=== PATIENT | female | born 1995 | race Caucasian/White ===

== ENCOUNTER 2019-02-16 04:59 | Inpatient (IN) | payer OTHER, MEDICAID ==
--- NOTE | 2019-02-16 07:17 | US ---
INDICATION: with possible rupture of membranes. TECHNIQUE: Ultrasound OB pelvis transabdominal. Real-time zaidi-scale imaging of the fetus was performed as well as color Doppler and spectral Doppler analysis of the umbilical artery. COMPARISON: 06/28/2018. FINDINGS: Sonographic imaging demonstrates a single living intrauterine gestation. Fetus demonstrates a regular cardiac rate of 163 beats per minute. Fetus has a cephalic orientation. The placenta lies posterior without evidence of placenta previa. Amniotic fluid volume appears normal with an EUGENE of 14.1 cm. breathing and movement were observed. IMPRESSION.: Viable intrauterine . Amniotic fluid volume is normal with an EUGENE of 14.1 cm. No abnormality visualized. Dictated by Cain Stover MD @ Feb 16 2019 7:12AM Signed by Dr. Cain Stover @ Feb 16 2019 7:16AM
[2019-02-16] MEDS ORDERED: Nalbuphine 10 MG/1 ML Vial IVPUSH PRN (07:50)
[2019-02-16] MEDS ORDERED: Water For Irrigation,Sterile 1,000 ML Container IRR PRN (07:50)
[2019-02-16] MEDS ORDERED: Sodium Chloride 0.9% 10 ML Syringe FLUSH PRN (07:50)
[2019-02-16] MEDS ORDERED: Methylergonovine 0.2 MG/1 ML Amp IM PRN (07:50)
[2019-02-16] MEDS ORDERED: Sodium Chloride 0.9% 10 ML SDV IV PRN (07:50)
[2019-02-16] MEDS ORDERED: Misoprostol 200 MCG Tab PO PRN (07:50)
[2019-02-16] MEDS ORDERED: Sodium Chloride 0.9% 2.5 ML Syringe FLUSH PRN (07:50)
[2019-02-16] MEDS ORDERED: Carboprost Tromethamine 250 MCG/1 ML Amp IM PRN (07:50)
[2019-02-16] MEDS ORDERED: Lidocaine 1% 50 ML MDV INJECT PRN (07:50)
[2019-02-16] MEDS ORDERED: Tranexamic Acid 1,000 MG in Sodium Chloride 0.9% 100 ML IV PRN (07:50)
[2019-02-16] MEDS ORDERED: Oxytocin/0.9 % Sodium Chloride 30 UNIT/500 ML BAG IV SCH ×2 (08:00→10:45)
[2019-02-16] MEDS: Lactated Ringers 1,000 ML IV SCH ×2 (10:00→16:22)
[2019-02-16] MEDS: Butorphanol 1 MG/ML SDV IVPUSH PRN ×2 (14:15→15:22)
[2019-02-16] MEDS ORDERED: fentaNYL 100 MCG/2 ML SDV ONE (17:04)
[2019-02-16] MEDS ORDERED: Ropivacaine HCl/PF 100 ML ONE (17:05)
[2019-02-16] MEDS ORDERED: Ropivacaine 0.2% 2 MG/ML 20 ML SDV ONE (17:05)
--- NOTE | 2019-02-16 19:22 | PCM.PREANE ---
Preanesthetic Assessment - Procedure Proposed Procedure: Labor Epidural - Anesthesia/Transfusion/Family Hx Anesthesia History: No Prior Anesthesia Family History of Anesthesia Reaction: Yes Family History of Anesthesia Reaction, Other: History of pseudocholinesterase defiecency. States tested and NEGATIVE. Transfusion History: No Prior Transfusion(s) Intubation History: Unknown - Review of Systems General: No Symptoms Pulmonary: No Symptoms Cardiovascular: No Symptoms Gastrointestinal: No Symptoms Neurological: No Symptoms Other: Reports: None - Physical Assessment NPO Status Date: 02/16/19 NPO Status Time: 16:00 (Clear liquids) Pulse: 80 O2 Sat by Pulse Oximetry: 99 Respiratory Rate: 24 Blood Pressure: 141/78 Temperature: 36.8 C Height: 1.63 m Weight: 78.471 kg ASA Class: 2 Mental Status: Alert & Oriented x3 Airway Class: Mallampati = 1 Dentition: Reports: Normal Dentition ROM/Head Extension: Full Cardiovascular: Regular Rate - Lab Values: Laboratory Last Values WBC 13.57 K/uL (4.0-11.0) H 02/16/19 08:30 RBC 3.83 M/uL (4.30-5.90) L 02/16/19 08:30 Hgb 12.0 g/dL (12.0-16.0) 02/16/19 08:30 Hct 35.9 % (36.0-46.0) L 02/16/19 08:30 MCV 93.7 fL (80.0-98.0) 02/16/19 08:30 MCH 31.3 pg (27.0-32.0) 02/16/19 08:30 MCHC 33.4 g/dL (31.0-37.0) 02/16/19 08:30 RDW Std Deviation 47.7 fl (28.0-62.0) 02/16/19 08:30 RDW Coeff of Alyce 14 % (11.0-15.0) 02/16/19 08:30 Plt Count 160 K/uL (150-400) 02/16/19 08:30 MPV 9.10 fL (7.40-12.00) 02/16/19 08:30 Nucleated RBC % 0.0 /100WBC 02/16/19 08:30 Nucleated RBCs # 0 K/uL 02/16/19 08:30 Membrane Rupture POSITIVE 02/16/19 05:35 Blood Type A POSITIVE 02/16/19 08:30 Antibody Screen NEGATIVE 02/16/19 08:30 - Allergies Allergies/Adverse Reactions: Allergies Allergy/AdvReac Type Severity Reaction Status Date / Time No Known Allergies Allergy Verified 02/16/19 05:12 - Blood Blood Available: No - Anesthesia Plan Free Text/Narrative:: Labor Epidural. Discussed, ? answered, permit signed, expectations understood. Pre-Op Medication Ordered: None - Acknowledgements Anesthesia Type Planned: Epidural Pt an Appropriate Candidate for the Planned Anesthesia: Yes Alternatives and Risks of Anesthesia Discussed w Pt/Guardian: Yes Pt/Guardian Understands and Agrees with Anesthesia Plan: Yes Additional Comments: Will proceed. PreAnesthesia Questionnaire - Past Health History Medical/Surgical History: Denies Medical/Surgical History - SUBSTANCE USE Smoking Status *Q: Never Smoker Tobacco Use Within Last Twelve Months: No Second Hand Smoke Exposure: No Days Per Week of Alcohol Use: 3 Number of Drinks Per Day: 3 Total Drinks Per Week: 9 Date of Last Drink: 06/17/18 Recreational Drug Use History: No - HOME MEDS Home Medications: Home Meds Vit #76/Iron,Carb/Fa [Pnv 29-1 Tablet] 1 each PO DAILY 02/14/19 [ History] - CURRENT (IN HOUSE) MEDS Current Meds: Current Medications Butorphanol Tartrate (Stadol) 1 mg IVPUSH Q1H PRN PRN Reason: Pain Last Admin: 02/16/19 15:22 Dose: 1 mg Carboprost Tromethamine (Hemabate Ds) 250 mcg IM ASDIRECTED PRN PRN Reason: Post Hemorrhage Tranexamic Acid 1,000 mg/ (Sodium Chloride) 110 mls @ 660 mls/hr IV ONETIME PRN PRN Reason: Bleeding Lactated Ringer's (Ringers, Lactated) 1,000 mls @ 150 mls/hr IV Q7H SARAH Last Admin: 02/16/19 16:22 Dose: 150 mls/hr Oxytocin/Sodium Chloride (Oxytocin 30 Unit/500 Ml-Ns) 30 unit in 500 mls @ 500 mls/hr IV TITRATE SARAH Oxytocin/Sodium Chloride (Oxytocin 30 Unit/500 Ml-Ns) 30 unit in 500 mls @ 2 mls/hr IV TITRATE SARAH; Protocol Last Infusion: 02/16/19 13:15 Dose: 6 munits/min, 6 mls/hr Lidocaine HCl (Xylocaine 1%) 50 ml INJECT ONETIME PRN PRN Reason: Laceration repair Methylergonovine Maleate (Methergine) 0.2 mg IM ASDIRECTED PRN PRN Reason: Post Hemorrhage Misoprostol (Cytotec) 200 mcg PO ONETIME PRN PRN Reason: Post Hemorrhage Nalbuphine HCl (Nubain) 10 mg IVPUSH Q1H PRN PRN Reason: Pain (severe 7-10) Sodium Chloride (Saline Flush) 10 ml FLUSH ASDIRECTED PRN PRN Reason: Keep Vein Open Sodium Chloride (Saline Flush) 2.5 ml FLUSH ASDIRECTED PRN PRN Reason: Keep Vein Open Sodium Chloride (Normal Saline) 10 ml IV ASDIRECTED PRN PRN Reason: IV Use Sterile Water (Sterile Water For Irrigation) 1,000 ml IRR ASDIRECTED PRN PRN Reason: delivery Discontinued Medications Fentanyl (Sublimaze) Confirm Administered Dose 100 mcg .ROUTE .STK-MED ONE Stop: 02/16/19 17:05 Ropivacaine (Naropin 0.2%) Confirm Administered Dose 100 mls @ as directed .ROUTE .STK-MED ONE Stop: 02/16/19 17:06 Ropivacaine (Naropin 0.2%) Confirm Administered Dose 20 ml .ROUTE .STK-MED ONE Stop: 02/16/19 17:06
--- NOTE | 2019-02-16 19:42 | PCM.PRNOTE ---
- Free Text/Narrative Note: Called to [facility] 1 for epidural. 1 cm in active labor on Pitocin. Dilated ~3cm. Pain with contractions 8-10. Discussed, ? answered, risks, benefits, expectations understood. Wishes to proceed. Permit signed. 17:16 Prep 17:20 Skin localized with 4ml 1% Lido @ L3-L4. 17:21 Needle inserted. 17:22 Epidural space ID'd via MARYJANE with0.9 NaCl/air mixture. Confirmed with4 ml 0.9 NaCl. 17:23 Catheter to 9 cm without issues. 17:24-26 Test with 5ml 1.5% lido with 1:200K epi added. TEST NEGATIVE. Occlusive Drsg Applied. 17:34-44 Bolus given, Naropin 0.2% 7ml + 100mcg Fentanyl. 17:48 pain to <2. VSS. 17:51 Gtt started at 8ml/hr with 4ml/q15 bolus of Naropin 0.2%. Tolerated well. Pain minimal. VSS. No problems noted post at present.
--- NOTE | 2019-02-16 21:46 | PCM.OPNOTE ---
<Corrie Candelario - Last Filed: 02/16/19 21:57> - General Post-Op/Procedure Note Condition: Good Free Text/Narrative:: [id number] <Ashia Flaherty - Last Filed: 02/16/19 22:00> - General Post-Op/Procedure Note Date of Surgery/Procedure: 02/16/19 Operative Procedure(s): Spontaneous vaginal delivery Findings: Spontaneous vaginal delivery of a live female . Apgars 8/9. Weight pending. 3vc. Placenta intact Pre Op Diagnosis: 39/0 IUP. 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
[2019-02-16] MEDS ORDERED: Lanolin 100% Cream 7 GM Tube TOP PRN (21:49)
[2019-02-16] MEDS ORDERED: Bisacodyl 10 MG Supp RECTAL PRN (21:49)
[2019-02-16] MEDS ORDERED: Ondansetron 4 MG/2 ML SDV IVPUSH PRN (21:49)
[2019-02-16] MEDS ORDERED: Docusate Sodium 100 MG Cap PO PRN (21:49)
[2019-02-16] MEDS ORDERED: Benzocaine/Menthol 20%-0.5% Spray 78 GM Cannister TOP PRN (21:49)
[2019-02-16] MEDS ORDERED: Aluminum Hydroxide/Magnesium Hydroxide/Simethicone Susp 30 ML Cup PO PRN (21:49)
[2019-02-16] MEDS ORDERED: oxyCODONE 5 MG Tab PO PRN (21:49)
[2019-02-16] MEDS ORDERED: Ibuprofen 400 MG Tab PO PRN (21:49)
[2019-02-16] MEDS ORDERED: Acetaminophen 500 MG Tab PO PRN ×2 (21:49)
[2019-02-16] MEDS ORDERED: Witch Hazel Medicated Pads 40/Jar TOP PRN (21:49)
--- NOTE | 2019-02-17 03:16 | OR ---
SURGEON: Corrie Candelario M.D. DATE OF PROCEDURE: 02/16/2019 PREOPERATIVE DIAGNOSES: 1. A 39 weeks' intrauterine . 2. Spontaneous rupture of membranes. POSTOPERATIVE DIAGNOSES: 1. A 39 weeks' intrauterine . 2. Spontaneous rupture of membranes. PROCEDURE: Spontaneous vaginal delivery, first-degree midline laceration repair. PRIMARY SURGEON: Corrie Candelario M.D. [employer] CHANGER [employer]: Eze Flaherty, MS4 ANESTHESIA: Epidural. ESTIMATED BLOOD LOSS: 250 mL. COMPLICATIONS: None. FINDINGS: Viable female. score 8 at one minute and 9 at five minutes. Weight is pending. Spontaneous delivery, intact placenta, 3-vessel cord. DISPOSITION: to [facility], mom in LDRP, stable. 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 With observation, she did not show evidence of active labor, and she was 2 to 3 cm dilated. Therefore, initiated Pitocin augmentation shortly after 9 a.m. She responded nicely to this, became increasingly uncomfortable, and underwent regional anesthesia from epidural, became more comfortable with the epidural and progressed to 4 cm, 90% effaced, 0 station. There was a forebag present. Therefore, amniotomy was performed with this. Clear fluid was returned, an IUPC was placed, and continued with Pitocin augmentation. The patient responded nicely to this and progressed to complete shortly before 9 p.m. She began pushing efforts, pushed for just over 20 minutes to a +3 station. I was called for delivery. Upon my arrival, the patient was placed in modified dorsal lithotomy position and was prepped and draped in the usual aseptic manner. With these pushing efforts, head was delivered atraumatically spontaneously, followed by anterior shoulder and posterior shoulder, and remainder of the body without difficulty. The 's oropharynx and nares bulb suctioned. Cord was clamped x2 and cut. Infant was handed off to her mother with attending nursing staff at side. Cord arterial, cord venous, cord blood sampling obtained. Light pressure was applied while the placenta was delivered spontaneously intact. Vigorous fundal and uterine massage was then applied while 30 units of Pitocin was delivered in 500 mL of IV fluid. Upon inspection of cervix, vaginal sidewalls, and perineum, there was found to be a first-degree midline laceration which I repaired using 3-0 Vicryl in a [id number] suture. Upon inspection of cervix, vaginal sidewalls, and perineum, these were otherwise found to be intact. Uterus remained firm. Hemostasis remained evident. Sponge, instrument, and needle count were correct. The patient remained in LDRP, to [facility]. CHATA / ADRIEN /[id number]
[2019-02-17] MEDS: Ibuprofen 800 MG Tab PO PRN ×2 (07:10→17:37)
--- NOTE | 2019-02-17 07:53 | PCM.PNPP ---
<Ashia Flaherty - Last Filed: 02/17/19 07:48> - General Info Date of Service: 02/17/19 Functional Status: Reports: Pain Controlled - Review of Systems General: Reports: No Symptoms. Denies: Fever, Chills HEENT: Reports: No Symptoms. Denies: Headaches Pulmonary: Reports: No Symptoms. Denies: Shortness of Breath Cardiovascular: Reports: No Symptoms. Denies: Chest Pain, Palpitations Gastrointestinal: Reports: Abdominal Pain (mild cramping) Genitourinary: Reports: No Symptoms. Denies: Dysuria Musculoskeletal: Reports: No Symptoms Skin: Reports: No Symptoms Neurological: Reports: No Symptoms Psychiatric: Reports: No Symptoms - General Info Date of Service: 02/17/19 - Patient Data Vital Signs - Most Recent: Last Vital Signs Temp 98.1 F 02/17/19 04:28 Pulse 69 02/17/19 04:28 Resp 16 02/17/19 04:28 BP 113/65 02/17/19 04:28 Pulse Ox 96 02/17/19 04:28 Weight - Most Recent: 78.471 kg Lab Results - Last 24 Hours: Laboratory Results - last 24 hr 02/16/19 02/16/19 02/16/19 Range/Units 08:30 08:30 21:30 WBC 13.57 H (4.0-11.0) K/uL RBC 3.83 L (4.30-5.90) M/uL Hgb 12.0 (12.0-16.0) g/dL Hct 35.9 L (36.0-46.0) % MCV 93.7 (80.0-98.0) fL MCH 31.3 (27.0-32.0) pg MCHC 33.4 (31.0-37.0) g/dL RDW Std Deviation 47.7 (28.0-62.0) fl RDW Coeff of Alyce 14 (11.0-15.0) % Plt Count 160 (150-400) K/uL MPV 9.10 (7.40-12.00) fL Nucleated RBC % 0.0 /100WBC Nucleated RBCs # 0 K/uL Cord ABG pH 7.306 (7.18-7.38) Cord ABG Base Excess -6 (-10--2) Cord VBG pH 7.322 (7.25-7.45) Cord VBG Base Excess -7 (-10--2) Blood Type A POSITIVE Antibody Screen NEGATIVE 02/17/19 Range/Units 05:45 WBC (4.0-11.0) K/uL RBC (4.30-5.90) M/uL Hgb 10.9 L (12.0-16.0) g/dL Hct 32.5 L (36.0-46.0) % MCV (80.0-98.0) fL MCH (27.0-32.0) pg MCHC (31.0-37.0) g/dL RDW Std Deviation (28.0-62.0) fl RDW Coeff of Alyce (11.0-15.0) % Plt Count (150-400) K/uL MPV (7.40-12.00) fL Nucleated RBC % /100WBC Nucleated RBCs # K/uL Cord ABG pH (7.18-7.38) Cord ABG Base Excess (-10--2) Cord VBG pH (7.25-7.45) Cord VBG Base Excess (-10--2) Blood Type Antibody Screen Med Orders - Current: Current Medications Acetaminophen (Tylenol Extra Strength) 500 mg PO Q4H PRN PRN Reason: Pain Acetaminophen (Tylenol Extra Strength) 1,000 mg PO Q4H PRN PRN Reason: Pain Al Hydroxide/Mg Hydroxide (Mag-Al Plus) 30 ml PO Q8H PRN PRN Reason: Heartburn Benzocaine/Menthol (Dermoplast Pain Relief 20%-0.5% Rolla) 78 gm TOP ASDIRECTED PRN PRN Reason: Perineal Comfort Measure Last Admin: 02/16/19 23:48 Dose: 1 can Bisacodyl (Dulcolax) 10 mg RECTAL ONETIME PRN PRN Reason: Constipation Carboprost Tromethamine (Hemabate Ds) 250 mcg IM ASDIRECTED PRN PRN Reason: Post Hemorrhage Docusate Sodium (Colace) 100 mg PO BID PRN PRN Reason: Constipation Emollient Ointment (Lansinoh Hpa) 0 gm TOP ASDIRECTED PRN PRN Reason: Sore Nipples Last Admin: 02/16/19 23:47 Dose: 7 gm Tranexamic Acid 1,000 mg/ (Sodium Chloride) 110 mls @ 660 mls/hr IV ONETIME PRN PRN Reason: Bleeding Lactated Ringer's (Ringers, Lactated) 1,000 mls @ 150 mls/hr IV Q7H SARAH Last Admin: 02/16/19 16:22 Dose: 150 mls/hr Oxytocin/Sodium Chloride (Oxytocin 30 Unit/500 Ml-Ns) 30 unit in 500 mls @ 500 mls/hr IV TITRATE SARAH Oxytocin/Sodium Chloride (Oxytocin 30 Unit/500 Ml-Ns) 30 unit in 500 mls @ 2 mls/hr IV TITRATE SARAH; Protocol Last Infusion: 02/16/19 21:30 Dose: 999 munits/min, 999 mls/hr Ibuprofen (Motrin) 400 mg PO Q4H PRN PRN Reason: Pain Ibuprofen (Motrin) 800 mg PO Q6H PRN PRN Reason: Pain Last Admin: 02/17/19 07:10 Dose: 800 mg Methylergonovine Maleate (Methergine) 0.2 mg IM ASDIRECTED PRN PRN Reason: Post Hemorrhage Misoprostol (Cytotec) 200 mcg PO ONETIME PRN PRN Reason: Post Hemorrhage Nalbuphine HCl (Nubain) 10 mg IVPUSH Q1H PRN PRN Reason: Pain (severe 7-10) Ondansetron HCl (Zofran) 4 mg IVPUSH Q6H PRN PRN Reason: Nausea/Vomiting Oxycodone HCl (Oxycodone) 5 mg PO Q2H PRN PRN Reason: Pain Sodium Chloride (Saline Flush) 10 ml FLUSH ASDIRECTED PRN PRN Reason: Keep Vein Open Sodium Chloride (Saline Flush) 2.5 ml FLUSH ASDIRECTED PRN PRN Reason: Keep Vein Open Sodium Chloride (Normal Saline) 10 ml IV ASDIRECTED PRN PRN Reason: IV Use Sterile Water (Sterile Water For Irrigation) 1,000 ml IRR ASDIRECTED PRN PRN Reason: delivery Last Admin: 02/16/19 22:02 Dose: 1,000 ml Witch Rebekah (Tucks) 1 pad TOP ASDIRECTED PRN PRN Reason: comfort care Last Admin: 02/16/19 23:48 Dose: 1 tub Discontinued Medications Butorphanol Tartrate (Stadol) 1 mg IVPUSH Q1H PRN PRN Reason: Pain Last Admin: 02/16/19 15:22 Dose: 1 mg Fentanyl (Sublimaze) Confirm Administered Dose 100 mcg .ROUTE .STK-MED ONE Stop: 02/16/19 17:05 Ropivacaine (Naropin 0.2%) Confirm Administered Dose 100 mls @ as directed .ROUTE .STK-MED ONE Stop: 02/16/19 17:06 Lidocaine HCl (Xylocaine 1%) 50 ml INJECT ONETIME PRN PRN Reason: Laceration repair Ropivacaine (Naropin 0.2%) Confirm Administered Dose 20 ml .ROUTE .STK-MED ONE Stop: 02/16/19 17:06 - Interaction Infant Disposition, : Tucker in Room with Family Infant Interaction: Holding Infant Infant Feeding: Attempted ; Nursed Fair/Poor Support Person: - Recovery Exam Fundal Tone: Firm Fundal Level: At Umbilicus Fundal Placement: Midline Lochia Amount: Scant Lochia Color: Rubra/Red Episiotomy/Laceration: Approximated Bladder Status: Voiding Urinary Elimination: Voided - Exam General: Alert, Oriented HEENT: Pupils Equal Neck: Supple Lungs: Clear to Auscultation, Normal Respiratory Effort Cardiovascular: Regular Rate, Regular Rhythm GI/Abdominal Exam: Normal Bowel Sounds, Soft, Non-Tender, No Organomegaly, No Distention, No Abnormal Bruit, No Mass, Pelvis Stable Extremities: Normal Inspection, Normal Range of Motion, Non-Tender, No Pedal Edema, Normal Capillary Refill Skin: Warm, Dry, Intact Neurological: No New Focal Deficit Psy/Mental Status: Alert, Normal Affect, Normal Mood - Problem List & Annotations (1) Normal vaginal delivery SNOMED Code(s): 43885761, 380094950 Code(s): O80 - ENCOUNTER FOR FULL-TERM UNCOMPLICATED DELIVERY Status: Acute Current Visit: Yes - Problem List Review Problem List Initiated/Reviewed/Updated: Yes - Assessment Assessment:: PPD1 s/p with 1st degree laceration well Pain well controlled - Plan Plan:: Regular diet Pain control PRN Continue routine care <Corrie Candelario - Last Filed: 02/17/19 11:03> - Patient Data Vital Signs - Most Recent: Last Vital Signs Temp 36.8 C 02/17/19 08:17 Pulse 80 02/17/19 08:17 Resp 16 02/17/19 08:17 BP 141/78 H 02/17/19 08:17 Pulse Ox 99 02/17/19 08:00 Lab Results - Last 24 Hours: Laboratory Results - last 24 hr 02/16/19 02/17/19 Range/Units 21:30 05:45 Hgb 10.9 L (12.0-16.0) g/dL Hct 32.5 L (36.0-46.0) % Cord ABG pH 7.306 (7.18-7.38) Cord ABG Base Excess -6 (-10--2) Cord VBG pH 7.322 (7.25-7.45) Cord VBG Base Excess -7 (-10--2) Med Orders - Current: Current Medications Acetaminophen (Tylenol Extra Strength) 500 mg PO Q4H PRN PRN Reason: Pain Acetaminophen (Tylenol Extra Strength) 1,000 mg PO Q4H PRN PRN Reason: Pain Al Hydroxide/Mg Hydroxide (Mag-Al Plus) 30 ml PO Q8H PRN PRN Reason: Heartburn Benzocaine/Menthol (Dermoplast Pain Relief 20%-0.5% Rolla) 78 gm TOP ASDIRECTED PRN PRN Reason: Perineal Comfort Measure Last Admin: 02/16/19 23:48 Dose: 1 can Bisacodyl (Dulcolax) 10 mg RECTAL ONETIME PRN PRN Reason: Constipation Carboprost Tromethamine (Hemabate Ds) 250 mcg IM ASDIRECTED PRN PRN Reason: Post Hemorrhage Docusate Sodium (Colace) 100 mg PO BID PRN PRN Reason: Constipation Emollient Ointment (Lansinoh Hpa) 0 gm TOP ASDIRECTED PRN PRN Reason: Sore Nipples Last Admin: 02/16/19 23:47 Dose: 7 gm Tranexamic Acid 1,000 mg/ (Sodium Chloride) 110 mls @ 660 mls/hr IV ONETIME PRN PRN Reason: Bleeding Lactated Ringer's (Ringers, Lactated) 1,000 mls @ 150 mls/hr IV Q7H SARAH Last Admin: 02/16/19 16:22 Dose: 150 mls/hr Oxytocin/Sodium Chloride (Oxytocin 30 Unit/500 Ml-Ns) 30 unit in 500 mls @ 500 mls/hr IV TITRATE SARAH Oxytocin/Sodium Chloride (Oxytocin 30 Unit/500 Ml-Ns) 30 unit in 500 mls @ 2 mls/hr IV TITRATE SARAH; Protocol Last Infusion: 02/16/19 21:30 Dose: 999 munits/min, 999 mls/hr Ibuprofen (Motrin) 400 mg PO Q4H PRN PRN Reason: Pain Ibuprofen (Motrin) 800 mg PO Q6H PRN PRN Reason: Pain Last Admin: 02/17/19 07:10 Dose: 800 mg Methylergonovine Maleate (Methergine) 0.2 mg IM ASDIRECTED PRN PRN Reason: Post Hemorrhage Misoprostol (Cytotec) 200 mcg PO ONETIME PRN PRN Reason: Post Hemorrhage Nalbuphine HCl (Nubain) 10 mg IVPUSH Q1H PRN PRN Reason: Pain (severe 7-10) Ondansetron HCl (Zofran) 4 mg IVPUSH Q6H PRN PRN Reason: Nausea/Vomiting Oxycodone HCl (Oxycodone) 5 mg PO Q2H PRN PRN Reason: Pain Sodium Chloride (Saline Flush) 10 ml FLUSH ASDIRECTED PRN PRN Reason: Keep Vein Open Sodium Chloride (Saline Flush) 2.5 ml FLUSH ASDIRECTED PRN PRN Reason: Keep Vein Open Sodium Chloride (Normal Saline) 10 ml IV ASDIRECTED PRN PRN Reason: IV Use Sterile Water (Sterile Water For Irrigation) 1,000 ml IRR ASDIRECTED PRN PRN Reason: delivery Last Admin: 02/16/19 22:02 Dose: 1,000 ml Witch Rebekah (Tucks) 1 pad TOP ASDIRECTED PRN PRN Reason: comfort care Last Admin: 02/16/19 23:48 Dose: 1 tub Discontinued Medications Butorphanol Tartrate (Stadol) 1 mg IVPUSH Q1H PRN PRN Reason: Pain Last Admin: 02/16/19 15:22 Dose: 1 mg Fentanyl (Sublimaze) Confirm Administered Dose 100 mcg .ROUTE .STK-MED ONE Stop: 02/16/19 17:05 Ropivacaine (Naropin 0.2%) Confirm Administered Dose 100 mls @ as directed .ROUTE .STK-MED ONE Stop: 02/16/19 17:06 Lidocaine HCl (Xylocaine 1%) 50 ml INJECT ONETIME PRN PRN Reason: Laceration repair Ropivacaine (Naropin 0.2%) Confirm Administered Dose 20 ml .ROUTE .STK-MED ONE Stop: 02/16/19 17:06 - My Orders Last 24 Hours: My Active Orders 02/16/19 10:45 Oxytocin/0.9 % Sodium Chloride [Oxytocin 30 Unit/500 ML-NS] 30 unit in 500 ml IV TITRATE 02/16/19 21:49 Patient Status [ADT] Routine May Shower [RC] ASDIRECTED Up ad Karis [RC] ASDIRECTED Vital Signs [RC] PER UNIT ROUTINE Acetaminophen [Tylenol Extra Strength] 1,000 mg PO Q4H PRN Acetaminophen [Tylenol Extra Strength] 500 mg PO Q4H PRN Alum Hydrox/Mag Hydrox/Simeth [Mag-Al Plus] 30 ml PO Q8H PRN Benzocaine/Menthol [Dermoplast Pain Relief 20%-0.5% Rolla] 78 gm TOP ASDIRECTED PRN Bisacodyl [Dulcolax] 10 mg RECTAL ONETIME PRN Docusate Sodium [Colace] 100 mg PO BID PRN Ibuprofen [Motrin] 400 mg PO Q4H PRN Ibuprofen [Motrin] 800 mg PO Q6H PRN Lanolin [Lansinoh HPA] See Dose Instructions TOP ASDIRECTED PRN Ondansetron [Zofran] 4 mg IVPUSH Q6H PRN Witch Rebekah [Tucks] 1 pad TOP ASDIRECTED PRN oxyCODONE 5 mg PO Q2H PRN Assess Lochia [WOMSER] Per Unit Routine Assess Uterine Involution [WOMSER] Per Unit Routine Peripheral IV Discontinue [OM.PC] Routine 02/16/19 21:51 Ice Therapy [OM.PC] Per Unit Routine Perineal Care [OM.PC] Per Unit Routine Sitz Bath [OM.PC] Per Unit Routine 02/16/19 Dinner Regular Diet [DIET] - Plan Plan:: Patient seen and examined, agree with above
--- NOTE | 2019-02-17 08:17 | PCM48HPAN ---
Post Anesthesia Note - EVALUATION WITHIN 48HRS OF ANESTHETIC Vital Signs in Normal Range: Yes Patient Participated in Evaluation: Yes Respiratory Function Stable: Yes Airway Patent: Yes Cardiovascular Function Stable: Yes Hydration Status Stable: Yes Pain Control Satisfactory: Yes Nausea and Vomiting Control Satisfactory: Yes Mental Status Recovered: Yes Pulse Rate: 80 Resp Rate: 16 Temperature: 36.8 C Blood Pressure: 141/78 - COMMENTS/OBSERVATIONS Free Text/Narrative:: States back is sore but denies any other complaints
--- NOTE | 2019-02-18 07:28 | PCM.PNPP ---
<Ashia Flaherty - Last Filed: 02/18/19 07:26> - General Info Date of Service: 02/18/19 Functional Status: Reports: Pain Controlled - Review of Systems General: Reports: No Symptoms. Denies: Fever, Chills HEENT: Reports: No Symptoms. Denies: Headaches Pulmonary: Reports: No Symptoms. Denies: Shortness of Breath Cardiovascular: Reports: No Symptoms. Denies: Chest Pain, Palpitations Gastrointestinal: Reports: Abdominal Pain (mild, with . Better with use of motrin) Genitourinary: Reports: No Symptoms. Denies: Dysuria Musculoskeletal: Reports: No Symptoms Skin: Reports: No Symptoms Neurological: Reports: No Symptoms Psychiatric: Reports: No Symptoms - General Info Date of Service: 02/18/19 - Patient Data Vital Signs - Most Recent: Last Vital Signs Temp 97.5 F 02/18/19 05:16 Pulse 55 L 02/18/19 05:16 Resp 16 02/18/19 05:16 BP 100/58 L 02/18/19 05:16 Pulse Ox 97 02/18/19 05:16 Weight - Most Recent: 78.471 kg Med Orders - Current: Current Medications Acetaminophen (Tylenol Extra Strength) 500 mg PO Q4H PRN PRN Reason: Pain Acetaminophen (Tylenol Extra Strength) 1,000 mg PO Q4H PRN PRN Reason: Pain Al Hydroxide/Mg Hydroxide (Mag-Al Plus) 30 ml PO Q8H PRN PRN Reason: Heartburn Benzocaine/Menthol (Dermoplast Pain Relief 20%-0.5% [place]) 78 gm TOP ASDIRECTED PRN PRN Reason: Perineal Comfort Measure Last Admin: 02/16/19 23:48 Dose: 1 can Bisacodyl (Dulcolax) 10 mg RECTAL ONETIME PRN PRN Reason: Constipation Carboprost Tromethamine (Hemabate Ds) 250 mcg IM ASDIRECTED PRN PRN Reason: Post Hemorrhage Docusate Sodium (Colace) 100 mg PO BID PRN PRN Reason: Constipation Last Admin: 02/17/19 16:20 Dose: 100 mg Emollient Ointment (Lansinoh Hpa) 0 gm TOP ASDIRECTED PRN PRN Reason: Sore Nipples Last Admin: 02/16/19 23:47 Dose: 7 gm Tranexamic Acid 1,000 mg/ (Sodium Chloride) 110 mls @ 660 mls/hr IV ONETIME PRN PRN Reason: Bleeding Lactated Ringer's (Ringers, Lactated) 1,000 mls @ 150 mls/hr IV Q7H SARAH Last Admin: 02/16/19 16:22 Dose: 150 mls/hr Oxytocin/Sodium Chloride (Oxytocin 30 Unit/500 Ml-Ns) 30 unit in 500 mls @ 500 mls/hr IV TITRATE SARAH Oxytocin/Sodium Chloride (Oxytocin 30 Unit/500 Ml-Ns) 30 unit in 500 mls @ 2 mls/hr IV TITRATE SARAH; Protocol Last Infusion: 02/16/19 21:30 Dose: 999 munits/min, 999 mls/hr Ibuprofen (Motrin) 400 mg PO Q4H PRN PRN Reason: Pain Ibuprofen (Motrin) 800 mg PO Q6H PRN PRN Reason: Pain Last Admin: 02/17/19 17:37 Dose: 800 mg Methylergonovine Maleate (Methergine) 0.2 mg IM ASDIRECTED PRN PRN Reason: Post Hemorrhage Misoprostol (Cytotec) 200 mcg PO ONETIME PRN PRN Reason: Post Hemorrhage Nalbuphine HCl (Nubain) 10 mg IVPUSH Q1H PRN PRN Reason: Pain (severe 7-10) Ondansetron HCl (Zofran) 4 mg IVPUSH Q6H PRN PRN Reason: Nausea/Vomiting Oxycodone HCl (Oxycodone) 5 mg PO Q2H PRN PRN Reason: Pain Sodium Chloride (Saline Flush) 10 ml FLUSH ASDIRECTED PRN PRN Reason: Keep Vein Open Sodium Chloride (Saline Flush) 2.5 ml FLUSH ASDIRECTED PRN PRN Reason: Keep Vein Open Sodium Chloride (Normal Saline) 10 ml IV ASDIRECTED PRN PRN Reason: IV Use Sterile Water (Sterile Water For Irrigation) 1,000 ml IRR ASDIRECTED PRN PRN Reason: delivery Last Admin: 02/16/19 22:02 Dose: 1,000 ml Witch Rebekah (Tucks) 1 pad TOP ASDIRECTED PRN PRN Reason: comfort care Last Admin: 02/16/19 23:48 Dose: 1 tub Discontinued Medications Butorphanol Tartrate (Stadol) 1 mg IVPUSH Q1H PRN PRN Reason: Pain Last Admin: 02/16/19 15:22 Dose: 1 mg Fentanyl (Sublimaze) Confirm Administered Dose 100 mcg .ROUTE .STK-MED ONE Stop: 02/16/19 17:05 Ropivacaine (Naropin 0.2%) Confirm Administered Dose 100 mls @ as directed .ROUTE .STK-MED ONE Stop: 02/16/19 17:06 Lidocaine HCl (Xylocaine 1%) 50 ml INJECT ONETIME PRN PRN Reason: Laceration repair Ropivacaine (Naropin 0.2%) Confirm Administered Dose 20 ml .ROUTE .STK-MED ONE Stop: 02/16/19 17:06 - Interaction Disposition, : in Room with Family Interaction: Holding Infant Feeding: Breastfed ; Nursed Well Support Person: - Recovery Exam Fundal Tone: Firm Fundal Level: 2 Fingerbreadths Below Umbilicus Fundal Placement: Midline Lochia Amount: Scant Lochia Color: Rubra/Red Other Perinuem Description: 1st deg lac Episiotomy/Laceration: Approximated Bladder Status: Voiding Urinary Elimination: Voided - Exam General: Alert, Oriented HEENT: Pupils Equal Neck: Supple Lungs: Clear to Auscultation, Normal Respiratory Effort Cardiovascular: Regular Rate, Regular Rhythm GI/Abdominal Exam: Normal Bowel Sounds, Soft, Non-Tender, No Organomegaly, No Distention, No Abnormal Bruit, No Mass, Pelvis Stable Extremities: Normal Inspection, Normal Range of Motion, Non-Tender, No Pedal Edema, Normal Capillary Refill Skin: Warm, Dry, Intact Neurological: No New Focal Deficit Psy/Mental Status: Alert, Normal Affect, Normal Mood - Problem List & Annotations (1) Normal vaginal delivery SNOMED Code(s): 41481240, 129570641 Code(s): O80 - ENCOUNTER FOR FULL-TERM UNCOMPLICATED DELIVERY Status: Acute Current Visit: Yes - Problem List Review Problem List Initiated/Reviewed/Updated: Yes - Assessment Assessment:: PPD2 s/p with 1st degree laceration well Pain well controlled - Plan Plan:: Regular diet Pain control PRN Routine care Can discharge home today <Corrie Candelario - Last Filed: 02/18/19 09:00> - Patient Data Vital Signs - Most Recent: Last Vital Signs Temp 36.2 C 02/18/19 08:56 Pulse 65 02/18/19 08:56 Resp 18 02/18/19 08:56 BP 107/68 02/18/19 08:56 Pulse Ox 94 L 02/18/19 08:56 Med Orders - Current: Current Medications Acetaminophen (Tylenol Extra Strength) 500 mg PO Q4H PRN PRN Reason: Pain Acetaminophen (Tylenol Extra Strength) 1,000 mg PO Q4H PRN PRN Reason: Pain Al Hydroxide/Mg Hydroxide (Mag-Al Plus) 30 ml PO Q8H PRN PRN Reason: Heartburn Benzocaine/Menthol (Dermoplast Pain Relief 20%-0.5% [place]) 78 gm TOP ASDIRECTED PRN PRN Reason: Perineal Comfort Measure Last Admin: 02/16/19 23:48 Dose: 1 can Bisacodyl (Dulcolax) 10 mg RECTAL ONETIME PRN PRN Reason: Constipation Carboprost Tromethamine (Hemabate Ds) 250 mcg IM ASDIRECTED PRN PRN Reason: Post Hemorrhage Docusate Sodium (Colace) 100 mg PO BID PRN PRN Reason: Constipation Last Admin: 02/17/19 16:20 Dose: 100 mg Emollient Ointment (Lansinoh Hpa) 0 gm TOP ASDIRECTED PRN PRN Reason: Sore Nipples Last Admin: 02/16/19 23:47 Dose: 7 gm Tranexamic Acid 1,000 mg/ (Sodium Chloride) 110 mls @ 660 mls/hr IV ONETIME PRN PRN Reason: Bleeding Lactated Ringer's (Ringers, Lactated) 1,000 mls @ 150 mls/hr IV Q7H SARAH Last Admin: 02/16/19 16:22 Dose: 150 mls/hr Oxytocin/Sodium Chloride (Oxytocin 30 Unit/500 Ml-Ns) 30 unit in 500 mls @ 500 mls/hr IV TITRATE SARAH Oxytocin/Sodium Chloride (Oxytocin 30 Unit/500 Ml-Ns) 30 unit in 500 mls @ 2 mls/hr IV TITRATE SARAH; Protocol Last Infusion: 02/16/19 21:30 Dose: 999 munits/min, 999 mls/hr Ibuprofen (Motrin) 400 mg PO Q4H PRN PRN Reason: Pain Ibuprofen (Motrin) 800 mg PO Q6H PRN PRN Reason: Pain Last Admin: 02/18/19 07:37 Dose: 800 mg Methylergonovine Maleate (Methergine) 0.2 mg IM ASDIRECTED PRN PRN Reason: Post Hemorrhage Misoprostol (Cytotec) 200 mcg PO ONETIME PRN PRN Reason: Post Hemorrhage Nalbuphine HCl (Nubain) 10 mg IVPUSH Q1H PRN PRN Reason: Pain (severe 7-10) Ondansetron HCl (Zofran) 4 mg IVPUSH Q6H PRN PRN Reason: Nausea/Vomiting Oxycodone HCl (Oxycodone) 5 mg PO Q2H PRN PRN Reason: Pain Sodium Chloride (Saline Flush) 10 ml FLUSH ASDIRECTED PRN PRN Reason: Keep Vein Open Sodium Chloride (Saline Flush) 2.5 ml FLUSH ASDIRECTED PRN PRN Reason: Keep Vein Open Sodium Chloride (Normal Saline) 10 ml IV ASDIRECTED PRN PRN Reason: IV Use Sterile Water (Sterile Water For Irrigation) 1,000 ml IRR ASDIRECTED PRN PRN Reason: delivery Last Admin: 02/16/19 22:02 Dose: 1,000 ml Witch Rebekah (Tucks) 1 pad TOP ASDIRECTED PRN PRN Reason: comfort care Last Admin: 02/16/19 23:48 Dose: 1 tub Discontinued Medications Butorphanol Tartrate (Stadol) 1 mg IVPUSH Q1H PRN PRN Reason: Pain Last Admin: 02/16/19 15:22 Dose: 1 mg Fentanyl (Sublimaze) Confirm Administered Dose 100 mcg .ROUTE .STK-MED ONE Stop: 02/16/19 17:05 Ropivacaine (Naropin 0.2%) Confirm Administered Dose 100 mls @ as directed .ROUTE .STK-MED ONE Stop: 02/16/19 17:06 Lidocaine HCl (Xylocaine 1%) 50 ml INJECT ONETIME PRN PRN Reason: Laceration repair Ropivacaine (Naropin 0.2%) Confirm Administered Dose 20 ml .ROUTE .STK-MED ONE Stop: 02/16/19 17:06 - Plan Plan:: Patient seen and examined, agree with discharge to home. Discharge instructions reviewed. Follow up at [facility] 6 weeks
[2019-02-18] MEDS: Ibuprofen 800 MG Tab PO PRN (07:37)
== END 2019-02-18 14:00 | disposition home or self-care (01) | DRG 807 ==
LOC: MW.OBCHECK 04:59 → MW.OB 05:01 → MW.OBCHECK 07:50 → MW.OB 07:50 → OBSVTOIN 21:49 → MW.OB 02-17 01:39
PROVIDERS: ADMIT Obstetrics & Gynecology; ATTEND Obstetrics & Gynecology
PROC: 10E0XZZ Delivery of Products of Conception, External Approach (ICD-10-PCS; principal; 2019-02-16)
PROC: 10907ZC Drainage of Amniotic Fluid, Therapeutic from Products of Conception, Via Natural or Artificial Opening (ICD-10-PCS; 2019-02-16)
PROC: 10H07YZ Insertion of Other Device into Products of Conception, Via Natural or Artificial Opening (ICD-10-PCS; 2019-02-16)
PROC: 0HQ9XZZ Repair Perineum Skin, External Approach (ICD-10-PCS; 2019-02-16)
PROC: 3E0R3BZ Introduction of Anesthetic Agent into Spinal Canal, Percutaneous Approach (ICD-10-PCS; 2019-02-16)
PROC: 00HU33Z Insertion of Infusion Device into Spinal Canal, Percutaneous Approach (ICD-10-PCS; 2019-02-16)
DX: O42.92 Full-term premature rupture of membranes, unspecified as to length of time between rupture and onset of labor (principal); Z3A.39 39 weeks gestation of pregnancy; Z37.0 Single live birth; O70.0 First degree perineal laceration during delivery
CPT/HCPCS: 01967; 36415; 51702; 59025; 59409; 76815; 76815-26; 82803; 84112; 85014; 85018; 85027; 86850; 86900; 86901; A9270-GY; J0595; J2590; J2795; J3010; J7120

== ENCOUNTER 2023-05-28 05:02 | Inpatient (IN) | payer OTHER ==
[2023-05-28] MEDS ORDERED: Terbutaline 1 MG/ML SDV SUBCUT PRN (05:05)
[2023-05-28] MEDS ORDERED: Lidocaine 1% 50 ML MDV INJECT PRN (05:05)
[2023-05-28] MEDS ORDERED: Sodium Chloride 0.9% 20 ML SDV IV PRN (05:05)
[2023-05-28] MEDS ORDERED: Carboprost Tromethamine 250 MCG/1 mL Vial IM PRN (05:05)
[2023-05-28] MEDS ORDERED: Methylergonovine 0.2 MG/1 ML Amp IM PRN ×2 (05:05→13:38)
[2023-05-28] MEDS ORDERED: Sodium Chloride 0.9% 10 ML Syringe FLUSH PRN (05:05)
[2023-05-28] MEDS ORDERED: Misoprostol 200 MCG Tab PO PRN (05:05)
[2023-05-28] MEDS ORDERED: Sodium Chloride 0.9% 2.5 ML Syringe FLUSH PRN (05:05)
[2023-05-28] MEDS ORDERED: Ondansetron 4 MG/2 ML SDV IVPUSH PRN (05:05)
[2023-05-28] MEDS ORDERED: Water For Irrigation,Sterile 1,000 ML Container IRR PRN (05:05)
[2023-05-28] MEDS ORDERED: Tranexamic Acid IN NACL,ISO-OS 1,000 MG in Premix Bag 1 BAG IV PRN ×4 (05:05→13:38)
[2023-05-28] MEDS ORDERED: Oxytocin/0.9 % Sodium Chloride 30 UNIT/500 ML BAG IV SCH ×2 (05:15)
[2023-05-28] MEDS ORDERED: Lactated Ringers 1,000 ML IV SCH (05:15)
[2023-05-28 06:11] LABS: HEMATOCRIT 33.2 % (37.0-47.0); HEMOGLOBIN 11.8 g/dL (12.0-16.0); MEAN CORPUSCULAR HEMOGLOBIN 32.6 pg (28.0-32.0); MEAN CORPUSCULAR HGB CONC 35.5 g/dL (32.0-36.0); MEAN CORPUSCULAR VOLUME 91.7 fL (83.0-99.0); MEAN PLATELET VOLUME 9.9 fL (9.4-12.3); PLATELET COUNT,PLT 162 K/uL (150-400); RED BLOOD CELL COUNT 3.62 M/uL (4.10-5.30); WHITE BLOOD CELL COUNT,WBC 10.03 K/uL (3.9-11.3)
[2023-05-28] MEDS ORDERED: Phenylephrine HCl 0.5 MG/5 ML AMP IVPUSH PRN (06:59)
[2023-05-28] MEDS ORDERED: ePHEDrine 50 MG/ML SDV IVPUSH PRN ×2 (06:59)
[2023-05-28] MEDS ORDERED: Ropivacaine HCl/PF 400 MG in Premix Bag 1 BAG EPIDUR SCH (07:00)
[2023-05-28] MEDS ORDERED: Nalbuphine 10 MG/0.5 ML Syringe IVPUSH ONE (09:26)
[2023-05-28] MEDS ORDERED: dexmedeTOMIDine HCl 200 MCG/2 ML SDV ONE (10:20)
[2023-05-28] MEDS ORDERED: Benzocaine/Menthol 20%-0.5% Spray 78 GM Cannister TOP PRN (13:38)
[2023-05-28] MEDS ORDERED: Ibuprofen 800 MG Tab PO PRN (13:38)
[2023-05-28] MEDS ORDERED: Acetaminophen 500 MG Tab PO PRN (13:38)
[2023-05-28] MEDS ORDERED: Lanolin 100% Cream 7 GM Tube TOP PRN (13:38)
[2023-05-28] MEDS ORDERED: Bisacodyl 10 MG Supp RECTAL PRN (13:38)
[2023-05-28] MEDS ORDERED: Witch Hazel Medicated Pads 40/Jar TOP PRN (13:38)
[2023-05-28 14:03] LABS: PH,UMBILICAL VENOUS 7.328 (7.25-7.45)
[2023-05-28 14:04] LABS: PH,UMBILICAL ARTERIAL 7.23 (7.18-7.38)
[2023-05-28] MEDS: Docusate Sodium 100 MG Cap PO PRN (19:59)
[2023-05-29 05:38] LABS: HEMATOCRIT 33.5 % (37.0-47.0); HEMOGLOBIN 11.7 g/dL (12.0-16.0)
[2023-05-29] MEDS: Docusate Sodium 100 MG Cap PO PRN (08:45)
[2023-05-29] MEDS ORDERED: Multivitamin Tab PO SCH (09:00)
== END 2023-05-29 16:40 | disposition home or self-care (01) | DRG 807 ==
LOC: UNDOADMOB 05:02 → MW.OB 05:02 → OBSVTOIN 05:05 → MW.OB 17:10
PROVIDERS: ADMIT Obstetrics & Gynecology; ATTEND Obstetrics & Gynecology
PROC: 10E0XZZ Delivery of Products of Conception, External Approach (ICD-10-PCS; principal; 2023-05-28)
PROC: 10907ZC Drainage of Amniotic Fluid, Therapeutic from Products of Conception, Via Natural or Artificial Opening (ICD-10-PCS; 2023-05-28)
PROC: 3E033VJ Introduction of Other Hormone into Peripheral Vein, Percutaneous Approach (ICD-10-PCS; 2023-05-28)
PROC: 3E0R3BZ Introduction of Anesthetic Agent into Spinal Canal, Percutaneous Approach (ICD-10-PCS; 2023-05-28)
PROC: 00HU33Z Insertion of Infusion Device into Spinal Canal, Percutaneous Approach (ICD-10-PCS; 2023-05-28)
DX: O80 Encounter for full-term uncomplicated delivery (principal); Z37.0 Single live birth; Z3A.39 39 weeks gestation of pregnancy
CPT/HCPCS: 01967; 36415; 51702; 59025; 82803; 85014; 85018; 85027; 86592; 86850; 86900; 86901; A9270-GY; J2590; J2795; J3490; J7120